=== PATIENT | female | born 1995 | race Caucasian/White ===

== ENCOUNTER 2019-09-13 00:38 | Emergency (ER) | payer OTHER ==
[~2019-09-13] VITALS: Ht 172.7 cm; Wt 65.9 kg
[2019-09-13 01:14] VITALS: TEMP 98
[2019-09-13 09:40] VITALS: BP 106/50; PULSE 108
== END 2019-09-13 09:45 | disposition home or self-care (01) ==
LOC: COL.ER 00:38
DX: F10.129 Alcohol abuse with intoxication, unspecified (principal); Y90.8 Blood alcohol level of 240 mg/100 ml or more
CPT/HCPCS: J2060